=== PATIENT | female | born 2000 | race African-American/Black ===

== ENCOUNTER 2020-10-25 09:03 | Emergency (ER) | payer BC, SELFPAY ==
--- NOTE | ~2020-10-25 | CT_ITS ---
EXAMINATION: CT abdomen pelvis w con INDICATION: Right-sided abdominal pain TECHNIQUE: Computed tomographic images of the abdomen and pelvis were obtained after the administrati on of 100 cc of Omnipaque 350 intravenous contrast. The dose-length product (DLP) was 504.78 mGy-cm. Automated exposure control and iterative reconstruction technique were employed. COMPARISON: None available FINDINGS: The lung bases are clear. The heart size is normal. The liver, spleen, pancreas, gallbladde r, and adrenal glands are normal. There are focal areas of decreased perfusion in the right mid kidne y. The left kidney is unremarkable. No stones are identified in the kidneys, ureters, or bladder. The re is no hydronephrosis or hydroureter. No pathologically enlarged abdominal or pelvic lymph nodes ar e identified. There is no free intraperitoneal gas or evidence of bowel obstruction. The appendix is normal. There is a fat-containing umbilical hernia. IMPRESSION: 1. CT findings consistent with acute pyelonephritis of the right kidney. Reviewed, dictated and finalized at location A. RIBBER
[2020-10-25 09:09] VITALS: BP 133/74; PULSE 128; RESP 18; TEMP 36.3; O2SAT 97
[2020-10-25 09:54] LABS: Basophils Percent Auto 0.2 % (0.2-1.2); Eosinophils Absolute Auto 0.3 K/mm3 (0-0.3); Eosinophils Percent Auto 1.8 % (0-4.4); Hemoglobin 13.3 g/dL (12.0-15.0); Immature Granulocyte Absolute 0.05 K/mm3 (0.00-0.031); Immature Granulocyte Percent A 0.3 % (0-0.5); Lymphocytes Absolute Auto 1.87 K/mm3 (0.9-3.2); Lymphocytes Percent Auto 11.5 % (18.3-44.2); Mean Corpuscular Hemoglobin 31.7 pg (26-34); Mean Corpuscular Volume 90.7 fl (80-100); Mean Platelet Volume 10.8 fl (7.4-10.4); Monocytes Absolute Auto 1.3 K/mm3 (0.1-0.6); Monocytes Percent Auto 8.1 % (2.6-8.5); Neutrophils Absolute Auto 12.7 K/mm3 (1.3-6.7); Neutrophils Percent Auto 78.1 % (45.5-73.1); Platelet Count Result 233 k/mm3 (150-375); Red Blood Count 4.19 M/mm3 (4.2-5.4); Red Cell Distribution Width 11.8 % (11.5-14.5); White Blood Count 16.3 K/mm3 (4.5-10.0)
[2020-10-25 10:04] LABS: Add Urine Microscopic? YES; Appearance Urine Cloudy (Clear); Bacteria Urine Trace /hpf; Bilirubin Urine Negative (Negative); Blood Urine 1+ (Negative); Color Urine Yellow (Yellow); Glucose Urine UA Negative (Negative); Ketones Urine Negative (Negative); Leukocyte Esterase Ur 3+ LEU/UL (Negative); Mucus Urine Few /lpf; Nitrate Urine Negative (Negative); Protein Urine 1+ mg/dL (Negative); Specific Grav Ur 1.014 (1.001-1.035); Squamous Epithelial Cell Urine Many /hpf (Few); Transitional Epi Cells Urine Rare /hpf (None Seen); Urobilinogen Urine Negative mg/dL (<2.0); WBC Clumps Urine Present /HPF; WBC Urine >75 /hpf
[2020-10-25 10:05] LABS: Alanine Aminotransferase 12 U/L (4-35); Albumin Level 4.4 g/dL (3.5-5.1); Alkaline Phosphatase 69 U/L (38-126); Anion Gap 7 mmol/L (8-16); Aspartate Amino Transferase 20 U/L (14-36); Bilirubin,Total 0.6 mg/dL (0.2-1.3); Blood Urea Nitrogen 12 mg/dL (7-17); Calcium 9.2 mg/dL (8.4-10.2); Carbon Dioxide 26 mmol/L (22-30); Chloride 103 mmol/L (98-107); Estimated CRCL calculation 83 ml/min; Estimated Glomerular Filt Rate > 60; Glucose 99 mg/dL (65-105); Lipase 47 U/L (23-300); Potassium 3.7 mmol/L (3.4-5.0); Sodium 136 mmol/L (137-145)
[2020-10-25 10:29] LABS: Beta HCG Quantitative < 2.39 mIU/ML
[2020-10-25] MEDS: FAMOTIDINE 20 MG/2 ML VIAL IV PUSH (10:48)
[2020-10-25 11:11] VITALS: BP 109/78; PULSE 98; RESP 18; O2SAT 98
[2020-10-25] MEDS: SODIUM CHLORIDE 0.9% IV 1,000 ML 999 ML IV CONT (11:11)
--- NOTE | 2020-10-25 12:24 | ED.ABDPAIN ---
HPI - Abdominal Pain General Chief Complaint: Abdominal Pain Stated Complaint: abd pain Time Seen by Provider: 10/25/20 09:11 Source: patient Mode of arrival: ambulatory Limitations: no limitations History of Present Illness HPI narrative: Patient is a 20-year-old female who presents to emergency department for evaluation of vaginal bleeding and right side abdominal and back pain have been present now for roughly a week patient notes over a week ago she had had in the same day a negative and positive test several days later began to have vaginal bleeding and has had spotting since and in the last week he has developed some right sided back pain that radiates into the abdomen patient denies similar occurrence denies vaginal bleeding aside from what she is currently experiencing patient notes that she has had some intermittent periods of abnormal vaginal bleeding is followed by Dr. Mantilla. Patient denies vaginal discharge or concern for STDs. Patient denies URI symptoms. Patient has not taken anything for her symptoms today Related Data Allergies Allergy/AdvReac Type Severity Reaction Status Date / Time No Known Allergies Allergy Verified 10/25/20 09:04 Review of Systems Review of Systems: All systems reviewed & are unremarkable except as noted in HPI and below PMFSH Family History Family History (Updated 08/22/19 @ 15:06 by Lenore Muse RN) Grandparent Hypertension Acute myocardial infarction Hx of heart artery stent Arthritis Asthma Mother Hypothyroidism Sibling Hyperthyroidism Down's syndrome Social History Social History Smoking status: Never smoker Substance use: former Gender identity (if verbalized by the patient): Female Spiritual care concerns: No Exam Narrative: Exam Narrative: GENERAL: Well-appearing, well-nourished, and in no acute distress. HEAD: Normocephalic, atraumatic. EYES: PERRLA and EOMI. ENT: Nares clear, no rhinorrhea or epistaxis. Mucous membranes moist. CHEST: Clear to auscultation. No respiratory distress. No wheezes rales or rhonchi HEART: Regular rate and rhythm. No murmur heard. Normal peripheral pulses. ABDOMEN: Soft, nontender, nondistended EXTREMITIES: Normal range of motion. No edema. SKIN: Warm, dry, no rash. NEURO: No focal deficits. Alert and oriented x3. PSYCH: Normal mood and affect. Course Course Emergency Course: Patient evaluated in the emergency department was hydrated given IV antibiotics found to have what is likely a urinary tract infection/kidney infection patient afebrile nontoxic-appearing no distress tolerating p.o. intake is feeling much better after interventions agrees to follow with her bottom sprayer patient feels comfortable for outpatient therapy and was given strict reasons to return and agrees to do so if symptoms worsen Vital Signs Vital signs: Vital Signs Temperature 97.3 F L 10/25/20 09:09 Pulse Rate 128 H 10/25/20 09:09 Respiratory Rate 18 10/25/20 09:09 Blood Pressure 133/74 10/25/20 09:09 Pulse Oximetry 97 10/25/20 09:09 Temperature 97.3 F L 10/25/20 09:09 Pulse Rate 98 10/25/20 11:11 Respiratory Rate 18 10/25/20 11:11 Blood Pressure 109/78 10/25/20 11:11 Pulse Oximetry 98 10/25/20 11:11 MDM - Abdominal Pain MDM Narrative Medical decision making narrative: Patient in the room at this time aware of case findings treatment plan and diagnosis patient will follow with her regulated program manager as instructed and agrees to return if symptoms worsen Lab Data Result diagrams: 10/25/20 09:31 10/25/20 09:31 Labs: Lab Results 10/25/20 10/25/20 10/25/20 Range/Units 09:31 09:31 09:31 WBC 16.3 H (4.5-10.0) K/mm3 RBC 4.19 L (4.2-5.4) M/mm3 Hgb 13.3 (12.0-15.0) g/dL Hct 38.0 (37.0-47.0) % MCV 90.7 (80-100) fl MCH 31.7 (26-34) pg MCHC 35.0 (32-36) g/dl RDW 11.8 (11.5-14.5) %
== END 2020-10-25 13:02 | disposition home or self-care (01) ==
PROVIDERS: Emergency Medicine Emergency Medical Services; Emergency Provider Emergency Medicine; PCP Pediatrics
DX: N12 Tubulo-interstitial nephritis, not specified as acute or chronic (principal)
CPT/HCPCS: 36415; 74177; 80053; 81001; 81025; 83690; 84702; 85025; 87077; 87086; 87088; 87186; 96365; 96367; 96375; 99284; J0131; J0696; J7030; Q9967

== ENCOUNTER 2020-10-26 08:36 | Emergency (ER) | payer BC, SELFPAY ==
[2020-10-26 08:48] VITALS: BP 110/69; PULSE 109; RESP 18; TEMP 37; O2SAT 97
[2020-10-26 08:59] LABS: Basophils Absolute Auto 0.1 K/mm3 (0.0-0.1); Basophils Percent Auto 0.4 % (0.2-1.2); Eosinophils Absolute Auto 0.1 K/mm3 (0-0.3); Eosinophils Percent Auto 0.6 % (0-4.4); Hematocrit 40.6 % (37.0-47.0); Immature Granulocyte Absolute 0.07 K/mm3 (0.00-0.031); Immature Granulocyte Percent A 0.4 % (0-0.5); Lymphocytes Absolute Auto 2.13 K/mm3 (0.9-3.2); Lymphocytes Percent Auto 13.3 % (18.3-44.2); Mean Corpuscular HGB Conc 34.5 g/dl (32-36); Mean Corpuscular Hemoglobin 31.5 pg (26-34); Mean Corpuscular Volume 91.2 fl (80-100); Mean Platelet Volume 10.4 fl (7.4-10.4); Monocytes Absolute Auto 1.5 K/mm3 (0.1-0.6); Monocytes Percent Auto 9.4 % (2.6-8.5); Neutrophils Absolute Auto 12.1 K/mm3 (1.3-6.7); Neutrophils Percent Auto 75.9 % (45.5-73.1); Platelet Count Result 213 k/mm3 (150-375); Red Blood Count 4.45 M/mm3 (4.2-5.4); Red Cell Distribution Width 11.8 % (11.5-14.5)
[2020-10-26 09:11] LABS: Alanine Aminotransferase 13 U/L (4-35); Albumin Level 4.3 g/dL (3.5-5.1); Alkaline Phosphatase 72 U/L (38-126); Anion Gap 7 mmol/L (8-16); Aspartate Amino Transferase 20 U/L (14-36); Bilirubin,Total 0.8 mg/dL (0.2-1.3); Blood Urea Nitrogen 8 mg/dL (7-17); Calcium 8.9 mg/dL (8.4-10.2); Carbon Dioxide 25 mmol/L (22-30); Chloride 103 mmol/L (98-107); Estimated CRCL calculation 83 ml/min; Estimated Glomerular Filt Rate > 60; Glucose 120 mg/dL (65-105); Lipase 35 U/L (23-300); Potassium 3.7 mmol/L (3.4-5.0); Sodium 135 mmol/L (137-145)
[2020-10-26 09:18] VITALS: BP 108/68; PULSE 112; RESP 18; O2SAT 98
--- NOTE | 2020-10-26 10:07 | ED.ABDPAIN ---
HPI - Abdominal Pain General Chief Complaint: Abdominal Pain Stated Complaint: pain, nausea - diag yesterday w/ kidney infection Time Seen by Provider: 10/26/20 08:55 Source: patient Mode of arrival: ambulatory Limitations: no limitations History of Present Illness HPI narrative: 20 years old -Chinese female presents with right flank pain, back pain intermittent diaphoresis and chills, intermittent nausea for the last few days, came to our emergency room yesterday and was discharged with a diagnosis of acute pyelonephritis, patient was discharged on Keflex at that time. Patient is back to the emergency room today because she is telling me that her symptoms are not improving. Patient denies any fever, vomiting, abdominal pain, urinary symptoms, vaginal bleeding or discharge. Related Data Allergies Allergy/AdvReac Type Severity Reaction Status Date / Time No Known Allergies Allergy Verified 10/26/20 08:40 Review of Systems Review of Systems: Narrative: CONSTITUTIONAL: Denies fever, chills, or sweats. EYES: Denies visual changes, redness, or discharge. ENT: Denies rhinorrhea, congestion, sore throat, or otalgia. CARDIOVASCULAR: Denies chest pain, palpitations, or edema. RESPIRATORY: Denies cough or dyspnea. GASTROINTESTINAL: Denies abdominal pain, nausea, vomiting, or diarrhea. GENITOURINARY: Denies dysuria or hematuria. SKIN: Denies rash or itching. MUSCULOSKELETAL: Back pain mainly right flank NEUROLOGIC: Denies headache, numbness, or weakness. PSYCHIATRIC: Denies anxiety or depression. PMFSH Family History Family History Grandparent Hypertension Acute myocardial infarction Hx of heart artery stent Arthritis Asthma Mother Hypothyroidism Sibling Hyperthyroidism Down's syndrome Social History Social History Smoking status: Never smoker Substance use: former Gender identity (if verbalized by the patient): Female Spiritual care concerns: No Exam Narrative: Exam Narrative: General appearance: Well-developed, well-nourished Skin: Normal color Head: Normocephalic, nontraumatic Eyes: Clear conjunctiva ENT: Oropharynx normal, ears normal, nose normal Neck: Supple, nontender Chest and respiratory: Airway patent, no respiratory distress, no accessory muscle use Heart: Regular rate/rhythm Abdomen: Soft, nontender, no organomegaly, quiet bowel sounds Vascular: Normal peripheral pulses, normal capillary refill. Musculoskeletal: Diffuse back pain all over. Neurologic: Alert and oriented ?3, DOMESTIC VIOLENCE COUNSELOR is normal as tested, no gross motor deficit Course Course Emergency Course: Improving COMMUNICATIONS FIELD TECHNICIAN/PA Physician Supervision Patient feeling much better, able to keep fluid and food down. Patient received 1 g of Rocephin IV prior to discharge. The plan to change Keflex to Cipro 500 twice daily for 7 days. Reevaluation(s) Date: 10/26/20 Time: 12:55 Vital Signs Vital signs: Vital Signs Temperature 37.0 C 10/26/20 08:48 Pulse Rate 109 H 10/26/20 08:48 Respiratory Rate 18 10/26/20 08:48 Blood Pressure 110/69 10/26/20 08:48 Pulse Oximetry 97 10/26/20 08:48 Temperature 37.0 C 10/26/20 11:12 Pulse Rate 100 10/26/20 11:43 Respiratory Rate 18 10/26/20 11:43 Blood Pressure 106/76 10/26/20 11:43 Pulse Oximetry 98 10/26/20 11:43 MDM - Abdominal Pain MDM Narrative Medical decision making narrative: Patient was discharged yesterday with a diagnosis of acute pyelonephritis, discharged on Keflex. Back again with back pain and her symptoms are not improving. Repeat labs, UA, start IV fluid, IV Toradol. Further
[2020-10-26 10:42] VITALS: BP 117/75; PULSE 96; RESP 18; O2SAT 99
[2020-10-26] MEDS: KETOROLAC 30 MG/ML VIAL (*BKC) IV PUSH (10:42)
[2020-10-26 10:51] LABS: Add Urine Microscopic? YES; Appearance Urine Clear (Clear); Bacteria Urine Trace /hpf; Bilirubin Urine Negative (Negative); Blood Urine Negative (Negative); Color Urine Yellow (Yellow); Glucose Urine UA Negative (Negative); Ketones Urine Trace mg/dL (Negative); Leukocyte Esterase Ur 1+ LEU/UL (Negative); Mucus Urine Moderate /lpf; Nitrate Urine Negative (Negative); Protein Urine 1+ mg/dL (Negative); Specific Grav Ur 1.016 (1.001-1.035); Squamous Epithelial Cell Urine Many /hpf (Few); Urobilinogen Urine Negative mg/dL (<2.0); WBC Urine 21-30 /hpf
[2020-10-26 11:12] VITALS: TEMP 37
[2020-10-26 11:43] VITALS: BP 106/76; PULSE 100; RESP 18; O2SAT 98
--- NOTE | 2020-10-26 12:57 | PC.NURSE ---
awaiting disposition - able to keep liquids down. Informed Dr France
[2020-10-26 13:26] VITALS: BP 107/73; PULSE 90; RESP 18; O2SAT 98
== END 2020-10-26 13:35 | disposition home or self-care (01) ==
PROVIDERS: Emergency Provider Emergency Medicine; PCP Pediatrics
DX: N12 Tubulo-interstitial nephritis, not specified as acute or chronic (principal)
CPT/HCPCS: 36415; 80053; 81001; 81025; 83690; 85025; 87086; 96365; 96375; 99284; J0696; J1885

== ENCOUNTER 2021-02-27 20:59 | Emergency (ER) | payer BC, SELFPAY ==
[2021-02-27 21:02] VITALS: BP 119/87; PULSE 86; RESP 16; TEMP 36.6; O2SAT 99
[2021-02-27 21:25] LABS: Basophils Absolute Auto 0.1 K/mm3 (0.0-0.1); Basophils Percent Auto 0.6 % (0.2-1.2); Eosinophils Percent Auto 9.2 % (0-4.4); Hematocrit 39.4 % (37.0-47.0); Hemoglobin 13.4 g/dL (12.0-15.0); Immature Granulocyte Absolute 0.03 K/mm3 (0.00-0.031); Immature Granulocyte Percent A 0.3 % (0-0.5); Lymphocytes Absolute Auto 2.78 K/mm3 (0.9-3.2); Lymphocytes Percent Auto 26.1 % (18.3-44.2); Mean Corpuscular Volume 91.2 fl (80-100); Mean Platelet Volume 10.6 fl (7.4-10.4); Monocytes Absolute Auto 0.7 K/mm3 (0.1-0.6); Monocytes Percent Auto 6.1 % (2.6-8.5); Neutrophils Absolute Auto 6.2 K/mm3 (1.3-6.7); Neutrophils Percent Auto 57.7 % (45.5-73.1); Platelet Count Result 251 k/mm3 (150-375); Red Blood Count 4.32 M/mm3 (4.2-5.4); Red Cell Distribution Width 11.8 % (11.5-14.5); White Blood Count 10.7 K/mm3 (4.5-10.0)
[2021-02-27 21:32] LABS: Add Urine Microscopic? YES; Appearance Urine Clear (Clear); Bacteria Urine Trace /hpf; Bilirubin Urine Negative (Negative); Blood Urine 3+ (Negative); Color Urine Yellow (Yellow); Glucose Urine UA Negative (Negative); Ketones Urine Negative (Negative); Leukocyte Esterase Ur 1+ LEU/UL (Negative); Mucus Urine Few /lpf; Nitrate Urine Negative (Negative); Protein Urine 2+ mg/dL (Negative); RBC Urine >75 /hpf (0-2); Specific Grav Ur 1.025 (1.001-1.035); Squamous Epithelial Cell Urine Moderate /hpf (Few); Urobilinogen Urine Negative mg/dL (<2.0)
[2021-02-27 21:48] LABS: Ethanol < 10 mg/dL (<10)
[2021-02-27 21:48] LABS: Alanine Aminotransferase 12 U/L (4-35); Albumin Level 4.5 g/dL (3.5-5.1); Alkaline Phosphatase 64 U/L (38-126); Anion Gap 9 mmol/L (8-16); Aspartate Amino Transferase 28 U/L (14-36); Bilirubin,Total 0.4 mg/dL (0.2-1.3); Blood Urea Nitrogen 13 mg/dL (7-17); Calcium 9.5 mg/dL (8.4-10.2); Carbon Dioxide 24 mmol/L (22-30); Chloride 107 mmol/L (98-107); Estimated CRCL calculation 95 ml/min; Estimated Glomerular Filt Rate > 60; Glucose 85 mg/dL (65-105); Potassium 3.7 mmol/L (3.4-5.0); Sodium 140 mmol/L (137-145)
--- NOTE | 2021-02-27 21:50 | PC.NURSE ---
Pt presents to ED after being advised by PD to present. Per pt, today she had a verbal altercation with daughter's father and afterwards she text a friend I want to kill myself . Per pt she was on the phone speaking to her mother and was not responding to texts from friend who became worried and called 911. PD presented to her home and advised her to be seen. Pt insists that she was just upset in the moment and denies homicidal and suicidal ideations. Pt admits to being treated for psychiatric care in the past and denies a formal diagnosis. Pt states she was last seen after an argument with daughter's father that led to her drinking heavily and passing out. Pt was taken to hospital and it was assumed that she attempted to harm herself. Pt denies any other treatment besides that occasion. Pt is obviously sad about situation with daughter's father but behaviors and presentation are appropriate. Pt is calm and cooperative and makes good and appropriate eye contact. Pt resting on cart on phone and advised to stop staff for assistance. Per ED discharge specialist, pt scored a 0 on psych assessment and is not an appropriate candidate for removal of personal items and being placed in teal scrubs. Pt resting comfortably and is in no obvious distress at this time.
--- NOTE | 2021-02-27 21:51 | ED.PSYCH ---
HPI - Psych General Chief Complaint: Psychiatric Symptoms Stated Complaint: sent by PD; SI Time Seen by Provider: 02/27/21 21:34 Source: patient Mode of arrival: ambulatory Limitations: no limitations History of Present Illness HPI Narrative: Patient is a 20-year-old female brought in by PD for possible suicidal ideation. Patient adamantly denies any suicidal ideation. Patient states that she was angry at that time with her daughter's father, I am having a custody chapman with him and I texted my friend something stupid just out of anger and I did not reply right away so she was concerned and called the police . Patient denies any thoughts of hurting herself or others. Patient states that she was angry at the situation and now she is feeling better. Denies homicidal ideation. Related Data Allergies Allergy/AdvReac Type Severity Reaction Status Date / Time No Known Allergies Allergy Verified 11/06/20 10:51 Review of Systems Review of Systems: All systems reviewed & are unremarkable except as noted in HPI and below Constitutional: Constitutional: Denies body ache(s), Denies chills, Denies excessive sweating, Denies fatigue, Denies fever(s), Denies headache(s), Denies lethargy, Denies malaise, Denies weakness and Denies weight loss Eyes: Eyes: Denies blurry vision, Denies change in vision and Denies loss of vision ENT: Denies dizziness, Denies ear discharge, Denies headache(s), Denies lip swelling, Denies epistaxis, Denies nasal congestion, Denies neck pain, Denies throat swelling and Denies tongue swelling Cardiovascular: Cardiovascular: Denies chest pain, Denies chest pain at rest, Denies chest pain with activity, Denies diaphoresis, Denies rapid heart rate, Denies edema, Denies irregular heart rhythm, Denies lightheadedness, Denies palpitations, Denies dyspnea and Denies dyspnea on exertion Respiratory: Respiratory: Denies chest congestion, Denies cough, Denies hemoptysis, Denies dyspnea and Denies dyspnea on exertion Gastrointestinal: Gastrointestinal: Denies abdominal pain, Denies melena, Denies hematochezia, Denies diarrhea, Denies nausea, Denies vomiting and Denies hematemesis Musculoskeletal: Musculoskeletal: Denies abnormal gait, Denies deformity, Denies joint swelling, Denies limited range of motion, Denies neck pain and Denies numbness Neurologic: Denies Abnormal speech present, Denies abnormal gait, Denies confusion, Denies dizziness, Denies headache(s), Denies focal weakness, Denies loss of vision, Denies numbness, Denies Other visual disturbances, Denies Sensory deficit (Neuro) and Denies weakness Psychiatric: Psychiatric: Denies confusion, Denies depression, Denies auditory hallucinations and Denies homicidal ideation Endocrine: Endocrine: Denies cold intolerance, Denies excessive sweating, Denies fatigue, Denies heat intolerance and Denies palpitations Hematologic/Lymphatic: Hematologic/Lymphatic: Denies easy bleeding and Denies easy bruising Allergic/Immunologic: Allergic/Immunologic: Denies lip swelling, Denies throat swelling and Denies tongue swelling PMFSH Past Medical History Medical History Anxiety Depression (normal spontaneous vaginal delivery) Family History Family History Grandparent Hypertension Acute myocardial infarction Hx of heart artery stent Arthritis Asthma Mother Hypothyroidism Sibling Hyperthyroidism Down's syndrome Social History Social History Smoking status: Never smoker Alcohol intake: current Substance use: former Substance use type: marijuana Gender identity (if verbalized by the patient): Female Spiritual care concerns: No Exam Const: General: cooperative, healthy appearing, comfortable, no acute distress, well developed, alert and awake; No confusion Orientation/consciousness: or
[2021-02-27 22:09] LABS: Amphetamine Screen Urine Negative (Negative); Barbiturate Screen Urine Negative (Negative); Benzodiazepines Screen Urine Negative (Negative); Cannabinoid Screen Urine Positive (Negative); Cocaine Screen Urine Negative (Negative); Methadone Screen Urine Negative (Negative); Opiate Screen Urine Negative (Negative); Phencyclidine Screen Urine Negative (Negative)
--- NOTE | 2021-02-27 22:59 | PC.NURSE ---
[facility] declined, medicaid not active at this time.
--- NOTE | 2021-02-27 23:39 | PC.NURSE ---
Crisis arrived to ED for pt evaluation
--- NOTE | 2021-02-27 23:56 | PC.NURSE ---
apartment leasing specialist at bedside speaking to pt.
--- NOTE | 2021-02-28 00:04 | PC.NURSE ---
Per career information specialist, pt due to dc home on a safety contract.
[2021-02-28 00:11] VITALS: BP 105/76; PULSE 71; RESP 18; TEMP 37.2; O2SAT 99
[2021-02-28 00:14] VITALS: BP 105/76; PULSE 71; RESP 18; TEMP 37.2; O2SAT 99
== END 2021-02-28 00:15 | disposition home or self-care (01) ==
PROVIDERS: Emergency Medicine; Emergency Provider Emergency Medicine; PCP Family Medicine
DX: R45.4 Irritability and anger (principal)
CPT/HCPCS: 36415; 80053; 80307; 81001; 81025; 84443; 85025; 87086; 87088; 99284

== ENCOUNTER → 2021-08-16 04:10 | Outpatient (CLI) | payer BC, SELFPAY ==
[2021-08-16 17:24] LABS: SARS-CoV-2 RNA PCR Negative
== END ==
PROVIDERS: PCP Family Medicine; Visit Provider Family Medicine
DX: R09.81 Nasal congestion (principal); Z20.822 Contact with and (suspected) exposure to COVID-19
CPT/HCPCS: C9803; U0003; U0005

== ENCOUNTER → 2021-10-22 09:59 | Outpatient (CLI) | payer BC, SELFPAY ==
--- NOTE | ~2021-10-22 | XR_ITS ---
EXAMINATION: XR ankle RT min 3V, XR foot RT min 3V DATE: 10/22/2021 10:28 INDICATION: Unspecified joint pain at the right foot and ankle TECHNIQUE: 1. Anteroposterior, mortise, additional oblique and lateral view of the right ankle were obtained. 2. Dorsoplantar, two oblique and lateral views of the right foot were obtained. COMPARISON: None. FINDINGS: Alignment of the right foot and ankle is normal. No fracture or osteochondral lesion. Joint spaces ar e well maintained. No ankle joint effusion. The soft tissues are unremarkable. IMPRESSION: 1. Negative right foot and ankle radiographs. Reviewed, dictated and finalized at location A. RONMENTAL RESOURCE SPECIALIST IMPRESSION: 1. Negative right foot and ankle radiographs.
== END ==
PROVIDERS: PCP Nurse Practitioner; Visit Provider Nurse Practitioner
DX: M79.673 Pain in unspecified foot (principal); M25.579 Pain in unspecified ankle and joints of unspecified foot
CPT/HCPCS: 73610; 73630

== ENCOUNTER 2022-06-07 11:51 | Observation (INO) | payer BC, MEDICAID, SELFPAY ==
[2022-06-07 12:15] VITALS: BMI 33.2
[2022-06-07 12:30] VITALS: TEMP 36.6
[2022-06-07 12:39] LABS: Basophils Absolute Auto 0.1 K/mm3 (0.0-0.1); Basophils Percent Auto 0.3 % (0.2-1.2); Eosinophils Percent Auto 6.1 % (0-4.4); Hematocrit 34.1 % (37.0-47.0); Hemoglobin 12.1 g/dL (12.0-15.0); Immature Granulocyte Absolute 0.09 K/mm3 (0.00-0.031); Immature Granulocyte Percent A 0.5 % (0-0.5); Lymphocytes Absolute Auto 2.35 K/mm3 (0.9-3.2); Lymphocytes Percent Auto 13.9 % (18.3-44.2); Mean Corpuscular HGB Conc 35.5 g/dl (32-36); Mean Corpuscular Hemoglobin 30.9 pg (26-34); Mean Corpuscular Volume 87.2 fl (80-100); Mean Platelet Volume 10.9 fl (7.4-10.4); Monocytes Absolute Auto 0.8 K/mm3 (0.1-0.6); Monocytes Percent Auto 4.7 % (2.6-8.5); Neutrophils Absolute Auto 12.5 K/mm3 (1.3-6.7); Neutrophils Percent Auto 74.5 % (45.5-73.1); Platelet Count Result 206 k/mm3 (150-375); Red Blood Count 3.91 M/mm3 (4.2-5.4); Red Cell Distribution Width 12.7 % (11.5-14.5); White Blood Count 16.9 K/mm3 (4.5-10.0)
[2022-06-07] MEDS: DEXTROSE 5%/0.45% SOD CHL 1,000 ML 999 ML IV CONT (12:39)
[2022-06-07] MEDS: ONDANSETRON INJ 4 MG/2 ML VIAL IV PUSH (12:40)
--- NOTE | 2022-06-07 12:48 | OBADM ---
This patient, Melissa Navarrete, admitted to the OB room [facility] for observation. Patient/family oriented to hospital policies and general routines including ID bracelet, bed and alarms, visiting hours, pain management, procedures, bathroom and other care routines, personal items, smoking policy, room service/diet, and visiting hours. Patient/Family are encouraged to report perceived risks to care and to ask questions if they do not understand what they are told or what they should do. Pt. presents with reports of being woke up by abdominal cramping accompanied by vomiting and diarrhea this morning at approx. 0800. She states she thinks she ate something bad last night at approx. 1700. Pt. denies fever, vaginal bleeding and contractions.
[2022-06-07 12:52] LABS: Alanine Aminotransferase 12 U/L (6-35); Albumin Level 3.8 g/dL (3.5-5.1); Alkaline Phosphatase 75 U/L (38-126); Anion Gap 8 mmol/L (8-16); Aspartate Amino Transferase 18 U/L (14-36); Bilirubin,Total 0.2 mg/dL (0.2-1.3); Blood Urea Nitrogen 6 mg/dL (7-17); Calcium 8.9 mg/dL (8.4-10.2); Carbon Dioxide 20 mmol/L (22-30); Chloride 106 mmol/L (98-107); Estimated CRCL calculation 153 ml/min; Estimated Glomerular Filt Rate > 60; Glucose 83 mg/dL (65-110); Potassium 3.8 mmol/L (3.4-5.0); Sodium 134 mmol/L (137-145)
--- NOTE | 2022-06-11 07:32 | PM.OBTRLD ---
OB - Triage/Final Diagnosis Visit Information Reason for evaluation: threatened labor Comments/Additional reasons for admission: I have assessed the risk for this patient, Melissa Navarrete, and determined that she would benefit from observation care. Evaluation Laboratory results: Laboratory Tests 06/07/22 06/07/22 12:31 12:31 WBC 16.9 H RBC 3.91 L Hgb 12.1 Hct 34.1 L MCV 87.2 MCH 30.9 MCHC 35.5 RDW 12.7 Plt Count 206 MPV 10.9 H Immature Gran % (Auto) 0.5 Neut % (Auto) 74.5 H Lymph % (Auto) 13.9 L Vilas % (Auto) 4.7 Eos % (Auto) 6.1 H Baso % (Auto) 0.3 Lymph # (Auto) 2.35 Vilas # (Auto) 0.8 H Eos # (Auto) 1.0 H Baso # (Auto) 0.1 Abs Immat Gran (auto) 0.09 H Absolute Neuts (auto) 12.5 H Absolute Nucleated RBC 0.0 Nucleated RBC % 0.0 Sodium 134 L Potassium 3.8 Chloride 106 Carbon Dioxide 20 L Anion Gap 8 BUN 6 L D Creatinine 0.50 L Estim Creat Clear Calc 153 Estimated GFR > 60 Glucose 83 Calcium 8.9 Total Bilirubin 0.2 AST 18 ALT 12 Alkaline Phosphatase 75 Total Protein 7.0 Albumin 3.8
== END 2022-06-07 14:40 | disposition home or self-care (01) ==
PROVIDERS: Obstetrics & Gynecology; Admitting Provider Obstetrics & Gynecology; PCP Family Medicine; Visit Provider Obstetrics & Gynecology
DX: O47.02 False labor before 37 completed weeks of gestation, second trimester (principal); O44.42 Low lying placenta NOS or without hemorrhage, second trimester; Z3A.24 24 weeks gestation of pregnancy
CPT/HCPCS: 36415; 80053; 85025; 96374; G0378; G0379; J2405

== ENCOUNTER 2022-09-22 03:41 | Inpatient (IN) | payer BC, MEDICAID, SELFPAY ==
[2022-09-22] VITALS (98 sets, daily range): BP systolic 102–147; BP diastolic 47–105; PULSE 75–167; RESP 16–18; TEMP 36.2–37.2; O2SAT 94–100; BMI 35.1
--- NOTE | 2022-09-22 03:41 | LDADM ---
This patient, Melissa Navarrete, was admitted to Labor/Delivery/Recovery 104 on 09/22/22 at 03:41. Plans for labor, pain management and were discussed with patient. Patient/family oriented to hospital policies and general routines including ID bracelet, bed and alarms, visiting hours, pain management, procedures, bathroom and other care routines, personal items, smoking policy, room service/diet and guest tray routines, security routines, and visiting hours. Patient/Family are encouraged to report perceived risks to care and to ask questions if they do not understand what they are told or what they should do. See OBIX for further documentation.
[2022-09-22] MEDS: LACTATED RINGERS 1,000 ML 125 ML IV CONT (04:17)
[2022-09-22] MEDS: ONDANSETRON INJ 4 MG/2 ML VIAL IV PUSH (04:25)
[2022-09-22 04:32] LABS: Basophils Percent Auto 0.2 % (0.2-1.2); Eosinophils Absolute Auto 0.3 K/mm3 (0-0.3); Eosinophils Percent Auto 2.3 % (0-4.4); Hematocrit 32.6 % (37.0-47.0); Hemoglobin 10.9 g/dL (12.0-15.0); Immature Granulocyte Absolute 0.06 K/mm3 (0.00-0.031); Immature Granulocyte Percent A 0.5 % (0-0.5); Mean Corpuscular HGB Conc 33.4 g/dl (32-36); Mean Corpuscular Hemoglobin 29.9 pg (26-34); Mean Corpuscular Volume 89.6 fl (80-100); Mean Platelet Volume 11.6 fl (7.4-10.4); Monocytes Percent Auto 7.9 % (2.6-8.5); Neutrophils Absolute Auto 8.9 K/mm3 (1.3-6.7); Neutrophils Percent Auto 72.1 % (45.5-73.1); Platelet Count Result 227 k/mm3 (150-375); Red Blood Count 3.64 M/mm3 (4.2-5.4); Red Cell Distribution Width 13.1 % (11.5-14.5); White Blood Count 12.3 K/mm3 (4.5-10.0)
--- NOTE | 2022-09-22 05:28 | WPDANESEPP ---
Anes - Eval Pre Procedure Procedure: labor epidural Date/Time: 09/22/22 05:28 Pre Op Diagnosis: IOL Patient Data Age: 21 Gender: F Height: 1.6 m Weight: 90 kg Last Vital Signs Temp 37.1 C 09/22/22 03:56 Pulse 75 09/22/22 05:01 Resp 16 09/22/22 03:56 BP 108/87 09/22/22 05:01 O2 Del Method Room Air 09/22/22 04:01 Allergies Allergy/AdvReac Type Severity Reaction Status Date / Time No Known Allergies Allergy Verified 09/16/22 09:52 Home Medications Medication Instructions Recorded Confirmed Type famotidine 20 mg tablet (Acid 20 mg PO DAILY #90 tabs 02/14/22 09/22/22 Rx Communications Designer (famotidine)) pyridoxine (vitamin B6) 25 mg 25 mg PO TID #120 tabs 02/14/22 09/22/22 Rx tablet albuterol sulfate 90 mcg/actuation 1 inh inhalation Q4H PRN shortness 05/28/22 09/22/22 Rx aerosol inhaler of breath or wheezing #6.7 grams loratadine 10 mg tablet (Claritin) 10 mg PO DAILY 06/07/22 09/22/22 History fluticasone propionate 50 1 spray intranasal DAILY #16 grams 06/25/22 09/22/22 Rx mcg/actuation nasal spray,suspension (Flonase Allergy Relief) ondansetron 4 mg disintegrating 4 mg PO Q4-6H PRN nausea and 08/05/22 09/22/22 Rx tablet vomiting #60 tabs valacyclovir 500 mg tablet 500 mg PO DAILY #30 tabs 08/05/22 09/22/22 Rx (Valtrex) Laboratory Tests 09/22/22 09/22/22 03:51 03:51 WBC 12.3 K/mm3 H K/mm3 (4.5-10.0) RBC 3.64 M/mm3 L M/mm3 (4.2-5.4) Hgb 10.9 g/dL L g/dL (12.0-15.0) Hct 32.6 % L % (37.0-47.0) MCV 89.6 fl fl (80-100) MCH 29.9 pg pg (26-34) MCHC 33.4 g/dl g/dl (32-36) RDW 13.1 % % (11.5-14.5) Plt Count 227 k/mm3 k/mm3 (150-375) MPV 11.6 fl H fl (7.4-10.4) Immature Gran % (Auto) 0.5 % % (0-0.5) Neut % (Auto) 72.1 % % (45.5-73.1) Lymph % (Auto) 17.0 % L % (18.3-44.2) Baker % (Auto) 7.9 % % (2.6-8.5) Eos % (Auto) 2.3 % % (0-4.4) Baso % (Auto) 0.2 % % (0.2-1.2) Lymph # (Auto) 2.10 K/mm3 K/mm3 (0.9-3.2) Baker # (Auto) 1.0 K/mm3 H K/mm3 (0.1-0.6) Eos # (Auto) 0.3 K/mm3 K/mm3 (0-0.3) Baso # (Auto) 0.0 K/mm3 K/mm3 (0.0-0.1) Abs Immat Gran (auto) 0.06 K/mm3 H K/mm3 (0.00-0.031) Absolute Neuts (auto) 8.9 K/mm3 H K/mm3 (1.3-6.7) Absolute Nucleated RBC 0.0 K/mm3 K/mm3 (0.0-0.012) Nucleated RBC % 0.0 % % (0.0-0.2) RPR Pending Patient hx anesthesia problems: none Family hx anesthesia problems: none Results Review: All pre-operative results and documents have been reviewed as part of the pre-operative evaluation. [facility] Past Medical History Medical History Acute pyelonephritis 10/2020 Anxiety Asthma Depression Suppression of menses Vaginal irritation Surgical History Surgical History (normal spontaneous vaginal delivery) 09/2019 Family History Family History Grandparent Hypertension Acute myocardial infarction Hx of heart artery stent Arthritis Asthma Mother Hypothyroidism Sibling Hyperthyroidism Down's syndrome Social History Social History Social History: Caffeine-none Smoking status: Never smoker Alcohol intake: former Substance use: never Substance use type: marijuana Lack of Transportation: No Lack of Food: Never True Current Housing: I Have Housing Concerned About Future Housing: No Difficulty Paying Gas/Electric Bills: No Difficulty Paying for Meds: No Currently Unemployed: No Education: High School Diploma/GED Difficulty w/ Childcare or Family Care: No Additional occupation/education comments: On disability leave for Gender identity (if verbalized
--- NOTE | 2022-09-22 06:59 | WPDOBADMIT ---
Obstetrics - Admit Note Admission Note: record reviewed. No pertinent additions to the history and/or any subsequent changes in the physical findings that are not consistent with the expected course of the were found. Additions to the history and/or subsequent changes in the physical findings follow. Melissa is a 21yo @ 39.3wks who presented in labor. 1. 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 H/o pyelonephritis 3. Anxiety/depression FHT's 150's/ mod kavon/ + accels/ occasional variable/late - cat 2, reassuring TOCO: ctx's q4m Cervix: 5/70/-2 s/p epidural and comfortable making adequate change, will start pitocin if contractions space out any further GBS neg
--- NOTE | 2022-09-22 09:56 | PM.OBPNLAB ---
Pain Control Date/time seen: 09/22/22 09:56 Pain control: epidural Pelvic Exam Dilation (cm): 6 Effacement (%): 80 station: -2 Amniotic membrane status: Ruptured (AROM, meconium 0953) Contractions Monitor mode: External Contraction frequency: 3 (-4) Contraction pattern: Irregular Status status: Category ll Comments: occasional mild variable Assessment and Plan Assessment: active labor Comments: will start pitocin augmentation
[2022-09-22] MEDS: OXYTOCIN 30 UNITS/NS 500 ML 30 UNITS/500 ML BAG IV CONT (10:00)
[2022-09-22 10:01] LABS: Rapid Plasma Reagin Non-Reactive (NonReactive)
[2022-09-22] MEDS: SODIUM CHLORIDE 0.9% IV 300 ML 600 ML I-UTERINE (11:00)
--- NOTE | 2022-09-22 13:23 | PM.OBPRVD ---
OB - Delivery Note Procedure Delivery date: 09/22/22 Intrapartal Events: Decelerations (variables) Delivery augmentation: Rupture of Membranes and Pitocin Delivery monitor: External FHT and Internal Uterine (with amnio-infusion) Route of delivery: Episiotomy description: None Laceration Description: None Specimen: Yes (placenta) Quantitative Blood Loss (ml): 150 Anesthesia type: Epidural Disposition: Floor Baby Date of : 09/22/22 Time of : 13:04 Weeks of gestation at delivery: 39 (.3) Infant gender: Male Weight (pounds): 7 Weight (ounces): 1 presentation: vertex position: Right Occiput Anterior Placenta delivery description: Expressed Cord Vessel Description: 3 Vessels, Nuchal Cord, True Knot, Loose and Delayed Cord Clamping score one minute: 9 score five minutes: 9 Narrative: Melissa rapidly progressed to complete dilation with strong desire to push. She pushed for 1 contraction and delivered the head over intact perineum. Nuchal cord was noted but delivered through. The was immediately placed skin to skin and had spontaneous cry. Pediatrics was present due to meconium and bulb suction his mouth and nose. Delayed cord clamping was performed. A true knot was noted in the cord as well. The umbilical cord was then clamped and cut. A segment of cord was collected for cord gases. The remaining cord blood was collected for typing. With Pitocin running and gentle downward traction on the cord, the placenta delivered without complications. Bimanual massage was performed and good uterine tone with minimal bleeding was noted. She was examined and no lacerations were identified. Good uterine tone with bleeding remained. Sponge, lap, instrument, and needle counts were correct at the end the procedure. Mom and baby were left bonding in the birthing suite in stable condition. [facility] Delivery Billing Delivery Delivery: Delivery Charge
--- NOTE | 2022-09-22 16:58 | PC.NURSE ---
Patient transferred to post room #1610 via wheelchair. Support person present. Oriented to unit, room, information board, rooming in, admission packet and security measures. Patient verbalizes understanding.
[2022-09-22] MEDS: IBUPROFEN 600 MG TABLET PO (21:00)
[2022-09-23] MEDS: IBUPROFEN 600 MG TABLET PO ×2 (04:15→10:21)
[2022-09-23 04:20] VITALS: BP 118/58; PULSE 81; RESP 18; TEMP 36.3
[2022-09-23 04:52] LABS: Hematocrit 27.8 % (37.0-47.0); Hemoglobin 9.2 g/dL (12.0-15.0)
--- NOTE | 2022-09-23 06:54 | PM.OBPNVD ---
OB - PN: Subj Subjective Date/time seen: 09/23/22 06:54 Narrative: PPD#1 Melissa reports doing well today. 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 Her pain is controlled. She is tolerating regular diet, voiding, passing gas, and ambulating without issues. She is breast feeding. She would like her son circumcised. She would like to go home today. OB - PN: Obj Data Labs 09/23/22 04:20 Labs: Laboratory Results - last 24 hr 09/22/22 09/23/22 03:51 04:20 Hgb 9.2 L Hct 27.8 L RPR Non-reactive OB - PN A/P Assessment and Plan (1) Normal vaginal delivery of second : Code(s): O80 - Encounter for full-term uncomplicated delivery Status: Acute Plan day: 1 Plan: routine care and discharge home Comments: - Pelvic rest; take meds as prescribed - ER return precautions: fever, n/v/abd pain, bleeding, HTN - F/u 4wks. Time Spent With Patient Time: Total time spent is greater than 50% in coordination of care (as documented) at patient's floor/unit and/or counseling patient: Review of Systems Constitutional: Constitutional: Denies chills, Denies fever(s) and Denies headache(s) Eyes: Eyes: Denies change in vision ENT: Denies dizziness and Denies headache(s) Cardiovascular: Cardiovascular: Denies chest pain, Denies palpitations and Denies dyspnea Respiratory: Respiratory: Denies cough and Denies dyspnea Gastrointestinal: Gastrointestinal: Denies nausea and Denies vomiting Neurologic: Denies dizziness and Denies headache(s) Endocrine: Endocrine: Denies palpitations Exam Const: General: cooperative, comfortable and no acute distress Orientation/consciousness: patient oriented x3 Resp: Effort & Inspection: normal respiratory effort Auscultation: clear to auscultation bilaterally Cardio: Rate: regular rate GI: Inspection: non-distended GI Palp: No abdominal tenderness and Yes Soft to palpation Auscultation: normal bowel sounds : Other: fundus firm Skin: General skin exam: normal color Neuro: General: patient oriented x3 Extrem: General: normal to inspection Psych: Appearance: grossly normal Affect: normal affect Attitude: cooperative
[2022-09-23 08:05] VITALS: BP 106/65; PULSE 84; RESP 16; TEMP 37.3; O2SAT 100
[2022-09-23] MEDS: POLYSACCHARIDE IRON COMPLEX 150 MG CAPSULE PO (08:18)
[2022-09-23] MEDS: FAMOTIDINE 20 MG TABLET PO (08:18)
[2022-09-23] MEDS: ACETAMINOPHEN 325 MG TABLET 650 MG PO ×2 (08:19→15:33)
[2022-09-23] MEDS: LORATADINE 10 MG TABLET PO (08:19)
[2022-09-23] MEDS: FLUTICASONE PROPIONATE 0.05% NA SPR 16 GM BTL (*BKC) 1 SPRAY NASAL (08:19)
[2022-09-23] MEDS: MULTIVIT/MIN/PREN/FOL AC/IRON TABLET 1 TAB PO (08:19)
[2022-09-23] MEDS: DOCUSATE SODIUM 100 MG CAPSULE PO (08:19)
--- NOTE | 2022-09-23 09:27 | WPDANLDPN2 ---
Anes-Prog Note L&D Date/Time: 09/23/22 09:27 Comfortable throughout: labor and delivery Neuraxial method: epidural Epidural/Spinal procedure site: clean & non-tender Neuro status: Neuro function grossly intact. Cardiovascular status: normal Respiratory status: normal Airway patency: baseline Mental status: baseline Post-Op hydration status: normal Vital Signs: Last Vital Signs Temp 99.1 F 09/23/22 08:05 Pulse 84 09/23/22 08:05 Resp 16 09/23/22 08:05 BP 106/65 09/23/22 08:05 Pulse Ox 100 09/23/22 08:05 O2 Del Method Room Air 09/22/22 04:01 Pain score (VAS): 3 I/O: Intake & Output 09/22/22 09/23/22 09/23/22 23:59 07:59 15:59 Intake Total 0 Output Total 60 Balance -60 Post-procedural complaints: other (hip pain) Patient feedback: Patient satisfied with anesthetic care.
--- NOTE | 2022-09-23 09:47 | PC.NURSE ---
[id number] Introductions were made, then consulted with patient to assess needs related to . Mother led the conversation with not being able to get infant to wake to breastfeed after his circumcision. Resources provided for inpatient and outpatient services using a resource guide and mom/baby guide. Mother voiced understanding of information and requests assistance. Mother works well with her with encouragement and education. Encouraged understanding of the benefits of skin to skin (demonstrating unwrapping infant and placing vertically on her chest), responsive feeding, massage touch for stimulation, warm wash cloth to wipe down infant, hand expression and finger feeding colostrum with a spoon, how to watch for early feeding signs, frequency of feeding on demand about every 8-12 times in 24 hours (about every 2-3 hours), milk production, duration of feeding, signs of adequate intake/output and how to record on the feeding sheet. Reviewed positioning and ear, shoulder, hip alignment, supporting the breast, asymmetrical latch (off-center), and leading with the chin with a big, open, wide gape. latched optimally to the left breast in football position after stimulating to wake for 20 minutes. Education given to mother of how to visualize suck/swallow ratios, stimulate to actively breastfeed and to listen for drinking at the breast. was able to maintain latch without discomfort to mother. Nipple care reviewed with optimal latch and good positioning. After an effective breastfeed for 17 minutes without any nipple misshaping was place skin to skin upright on mothers chest and she demonstrated understanding of waking infant, then when feeding cues were visualized she latched to the right breast effectively using football positioning. Reminding mother of comfort measures of healing with a warm and wet washcloth to rinse breast, then leave open to air-dry as needed. Reviewed good handwashing when or touching the breast/nipples to prevent infection. Resources used to facilitate learning were used with the tool, mom and baby guide. Mother voiced understanding of responsive feedings, stimulating with skin to skin, hand expressed colostrum, massage touch, talking to to encourage if it has been 2 -3 hours since the start of the last , to call if infant does not latch or there is discomfort with . Reported to the primary RN.
--- NOTE | 2022-09-23 09:59 | PC.NURSE ---
Patient instructed on viewing the discharge video Mother & Baby Care, The First Two Weeks . Patient was given the opportunity and encouraged to ask questions. Patient verbalized understanding of information shared and has been given the mother/baby guide for home reference.
[2022-09-23 12:07] VITALS: BP 130/73; PULSE 105; RESP 16; TEMP 36.9; O2SAT 98
--- NOTE | 2022-09-24 09:45 | PM.OBDSVD ---
DS: Admitting Diagnosis Discharge Date 09/23/22 Admitting Diagnosis labor DS: Discharge Diagnosis Discharge Diagnosis (1) Normal vaginal delivery of second : Code(s): O80 - Encounter for full-term uncomplicated delivery Status: Acute OB - DS: Summary OB Procedures : Ultrasound OB Procedures Intrapartum: Spontaneous Vag Delivery OB Procedures: : None Peripartum Data Delivery Method: Natural Vaginal complications: none [place] 1: Gender: Male Disposition of : home Status at Discharge Functional status at discharge: independent ambulation Overall status at discharge: patient is back to baseline Time Spent with Patient Time attestation: Total time spent providing and/or coordinating discharge services: Time spent: Less than 30 minutes Exam Const: General: cooperative, comfortable and no acute distress Orientation/consciousness: patient oriented x3 Resp: Effort & Inspection: normal respiratory effort Auscultation: clear to auscultation bilaterally Cardio: Rate: regular rate GI: Inspection: non-distended GI Palp: No abdominal tenderness and Yes Soft to palpation Auscultation: normal bowel sounds : Other: fundus firm Skin: General skin exam: normal color Neuro: General: patient oriented x3 Extrem: General: normal to inspection Psych: Appearance: grossly normal Affect: normal affect Attitude: cooperative DS: Data Data Completed and Pending Pending studies at discharge: Pending at discharge 09/22/22 14:38 Surgical [PTH] Routine Discharge Plan Discharge Attending physician on discharge: Neha Esqueda Discharging Clinician: Neha Esqueda Anticipated Discharge Date/Time: 09/23/22 14:00 Patient Disposition: Home, Self-Care Activity: may shower and pelvic rest Diet: regular Discharge Instructions: Education: Mom and Baby Guide Given to: Mother Follow-Up: Call your delivering provider's office for an appointment to be seen in: 4 Weeks Mom and baby should come to the [facility] for the follow-up appointment. Appointment Date/Time: September 24, 2022 at 11:00 am What to expect at your follow-up visit: Physical Assessment Call [phone] if you are unable to keep your appointment time. BREAST CARE: * Wear a snug supportive bra. * For engorgement discomfort: Breast Feeding: * Apply warm moist washcloths * Express milk as needed to relieve engorgement * Wear loose clothing * For sore nipples: * Identify correct latch-on * Apply warm moist washcloths before and after nursing * Air dry nipples after nursing * May apply Lansinoh cream to nipples EPISIOTOMY/PERINEAL CARE: * Until bleeding stops, use your keeley bottle after urinating * Change your pad frequently throughout the day * No tub baths until seen by your physician - You may shower ACTIVITY: * Rest as much as possible. * Do not exercise or lift anything heavier than your baby (such as laundry or other children.) * Avoid stairs or driving as much as possible. * Do not put anything into the vagina. No douching, tampons, or sexual activity until seen by physician. NOTIFY PHYSICIAN IF YOU HAVE ANY QUESTIONS OR IF ANY OF THE FOLLOWING SYMPTOMS OCCUR: * If your perineum becomes red, swollen, or more painful than what you have experienced in the hospital. * If your vaginal bleeding becomes foul smelling. * If your vaginal bleeding becomes more heavy than a period or if your bleeding changes from pink to bright red. However, you may pass an occasional walnut-sized clot once or twice for the first week . * If you experience a sharp, shooting pain in you calves. * If you discover a hard, reddened area on your breast or if you experience flu-like symptoms. DIET: * Eat regular, well-balanced meals. * Drink plenty of f
[2022-09-24 11:32] VITALS: BP 120/75; PULSE 102; RESP 20; TEMP 36.6; O2SAT 97
== END 2022-09-23 16:00 | disposition home or self-care (01) | DRG 807 ==
LOC: ANHLDR 03:51 → ANHOB2 16:13
PROVIDERS: Admitting Provider Obstetrics & Gynecology; PCP Family Medicine; Visit Provider Obstetrics & Gynecology
DX: O76 Abnormality in fetal heart rate and rhythm complicating labor and delivery (principal); Z37.0 Single live birth; O69.81X0 Labor and delivery complicated by cord around neck, without compression, not applicable or unspecified; O77.0 Labor and delivery complicated by meconium in amniotic fluid; Z3A.39 39 weeks gestation of pregnancy
CPT/HCPCS: 36415; 85014; 85018; 85025; 86592; 86850; 86900; 86901; 88307; A9270; J2405; J2590; J2795; J7030; J7120

== ENCOUNTER 2023-07-23 12:45 | Outpatient (CLI) | payer BC, OTHER, SELFPAY ==
--- NOTE | 2023-07-23 17:33 | WPDPFTINT ---
PFT Procedure Performed PFT Procedure Performed Spirometry with Pre/Post Bronchodilator Plethysmography (Lung Vol) Diffusing Cap (DLCO) Flow Vol Loop PFT Interpretation This is a pulmonary function test with pre and post-bronchodilator spirometry, plethysmography and diffusing capacity. The test was performed and results interpreted in accordance with the 2019 and 2005 ATS/ERS Task Force guidelines respectively using the Global Lung Function Initiative-2012 reference equations. Patient demonstrated good effort and cooperation. Reproducibility criteria were met. The quality of the pre bronchodilator spirometry maneuver was Grade B and post bronchodilator spirometry maneuver was Grade A. Findings: Spirometry: The contour the inspiratory and expiratory flow tracing are normal. The pre bronchodilator FVC is 3.98 L, 126% predicted. The pre bronchodilator FEV1 is 3.27 L, 118% predicted. The pre bronchodilator FEV1: FVC ratio is 82%. The post bronchodilator FVC is 4.14 L, representing a 4% increase. The post bronchodilator FEV1 is 3.54 L, representing an 8% increase. The post bronchodilator FEV1: FVC ratio was 85%. Plethysmography: The total lung capacity is 5.22 L, 121% predicted. The functional residual capacity is 2.04 L, 89% predicted. The residual volume is 1.18 L, 108% predicted. Diffusing capacity: The diffusing capacity unadjusted for hemoglobin and carboxyhemoglobin is 22.7, 89% predicted. The diffusing capacity adjusted for alveolar volume is 4.68, 92% predicted. Impression: The spirometry is normal without evidence of an obstructive abnormality. There is no significant improvement after inhaling a single dose of albuterol. The lung volumes are normal. The diffusing capacity is normal. There are no prior studies for comparison
== END 2023-07-23 12:46 | disposition home or self-care (01) ==
LOC: ANHPFT 12:45
PROVIDERS: PCP Family Medicine; Visit Provider Family Medicine
DX: J45.909 Unspecified asthma, uncomplicated (principal)
CPT/HCPCS: 94060; 94726; 94729